=== PATIENT | male | born 1975 | race Caucasian/White ===

== ENCOUNTER 2017-01-03 01:43 | Emergency (ER) | payer SELFPAY ==
[2017-01-03] MEDS ORDERED: ZIPRASIDONE INJ 20 MG/ML VIAL IM ONE ×2 (01:55→02:15)
[2017-01-03] MEDS ORDERED: WATER FOR INJ 10 ML VIAL INJ ONE (02:01)
--- NOTE | 2017-01-03 02:47 | RAD ---
EXAM: Single view chest. INDICATION: Chest pain. COMPARISON: Chest x-ray: None. FINDINGS: Cardiac silhouette: Unremarkable. Lianet: Unremarkable. Lobar consolidation: None. Pleural effusion: None. Pneumothorax: None. Other: None. Bones: Unremarkable. Other: None. IMPRESSION: 1. No acute cardiopulmonary process. Electronically signed by: Saeid Rose MD 01/03/2017 2:46 AM CDT
[2017-01-03] MEDS ORDERED: KCL 40MEQ/NS 1,000 ML IVS PRN (03:28)
[2017-01-03 03:33] VITALS: TEMP 98.5
--- NOTE | 2017-01-03 03:43 | ED.PDOC ---
History of Present Illness - General Source: patient, police, EMS Exam Limitations: clinical condition, intoxication - History of Present Illness Initial Comments: Patient brought in by EMS , escorted by police, after being found naked in a hotel hallway. He was making incoherent statements so he was brought here for evaluation for intoxication. He varies between being combative and being friendly, then sometimes pretending to be asleep. He gives his first name only and says he is from [place]. Otherwise, no other reliable information can be obtained. He states that he smoked "medical marijuana" tonight but denies any other drug use. Timing/Duration: unsure Severity: moderate Improving Factors: nothing Worsening Factors: nothing Associated Symptoms: denies symptoms <Silvino Sutton - Last Filed: 01/03/17 03:40> <Tamar Albright - Last Filed: 01/03/17 07:46> - General Chief Complaint: Behavioral / Psych Stated Complaint: confused and combative Time Seen by Provider: 01/03/17 02:03 - History of Present Illness Allergies/Adverse Reactions: Allergies NO KNOWN ALLERGY Allergy (Verified 01/03/17 02:17) Review of Systems - Review of Systems Unable to Obtain Due To: condition, clinical condition, other - intoxication <Silvino Sutton - Last Filed: 01/03/17 03:40> Past Medical History (General) - Patient Medical History Hx Asthma: No Hx Cardiac Disorders: No Hx Congestive Heart Failure: No Hx Pacemaker: No Hx Hypertension: No Hx Diabetes: No Surgical History: other - Vaccination History Hx Tetanus, Diphtheria Vaccination: - unk Hx Influenza Vaccination: - unk - Social History Hx Tobacco Use: Yes Hx Chewing Tobacco Use: No Hx Alcohol Use: Yes Feels Threatened In Home Enviroment: No Feels Threatened In a Relationship: No Hx Physical Abuse: No Hx Emotional Abuse: No Hx Suspected Abuse: No <Silvino Sutton - Last Filed: 01/03/17 03:40> Family Medical History - Family History Father Family History: Unknown <Silvino Sutton - Last Filed: 01/03/17 03:40> Physical Exam - Physical Exam General Appearance: Agitated, Restless Eye Exam: bilateral normal Ears, Nose, Throat: normal ENT inspection Neck: non-tender, full range of motion, supple Respiratory: lungs clear Cardiovascular/Chest: regular rate, rhythm Gastrointestinal/Abdominal: normal bowel sounds, non tender, soft Extremity: normal range of motion Neurologic: no motor/sensory deficits Skin Exam: normal color Lymphatic: no adenopathy <Silvino Sutotn - Last Filed: 01/03/17 03:40> Progress - Progress Progress: 01/03/17 03:44 Patient continued to be combative and threatening. He was given Geodon 20 mg IM plus Ativan 2 mg IM x one. He calmed down slightly but was still combative. He received Geodon 20 mg IM x one again and then went to sleep. He was put into 4 point restraints and labs were drawn. Potassium was 2.9 so he was started on one liter NS + KCl 40 meq over 4 hours. Urine drug screen was positive only for marijuana and opioids. Laboratory Tests 01/03/17 01/03/17 02:30 02:55 WBC 8.5 RBC 4.59 L Hgb 13.6 L Hct 40.1 L MCV 87.4 MCH 29.6 MCHC 33.9 RDW 13.0 Plt Count 218 MPV 7.7 Absolute Neuts (auto) 4.40 Absolute Lymphs (auto) 3.00 Absolute Monos (auto) 0.80 Absolute Eos (auto) 0.30 Absolute Basos (auto) 0.00 Neutrophils % 52.1 Lymphocytes % 35.2 Monocytes % 8.9 Eosinophils % 3.4 Basophils % 0.4 Sodium 142 Potassium 2.9 L Chloride 109 Carbon Dioxide 24 Anion Gap 11.9 L BUN 14 Creatinine 1.17 BUN/Creatinine Ratio 12.0 Random Glucose 103 Serum Osmolality 283.8 Calcium 8.5 Total Bilirubin 0.7 AST 27 ALT 26 Alkaline Phosphatase 57 Serum Total Protein 6.8 Albumin 3.9 Globulin 2.9 Albumin/Globulin Ratio 1.3 Salicylates < 4.0 Urine Opiates Screen Positive H Acetaminophen < 10.0 L Urine Barbiturates Negative Ur Phencyclidine Scrn Negative U Amphetamin/Meth Scrn Negative U Benzodiazepines Scrn Negative U Cocaine Metab Screen Negative U Cannabinoids Screen Positive H Ethyl Alcohol < 5.40 <Silvino Sutton - Last Filed: 01/03/17 03:40> - Progress Progress: 01/03/17 07:42 IV Potassium is done. Patient is arousable and does not remember what went on last night. He is medically cleared & ok to go to skilled nursing. PD called. He is still in 4 point restraints due to being combative last night. Will await officer arrival prior to removing restraints. <Tamar Albright - Last Filed: 01/03/17 07:46> Departure <Silvino Sutton - Last Filed: 01/03/17 03:40> - Departure Time of Disposition: 07:44 Diet: resume usual diet Activity: increase activity as tolerated <Tamar Albright - Last Filed: 01/03/17 07:46> - Departure Clinical Impression: Drug abuse Altered mental state Qualifiers: Altered mental status type: transient alteration of awareness Qualifier Code: ( R40.4) Transient alteration of awareness Disposition: Assisted Condition: Good Departure Forms: ED Discharge - Pt. Copy, Patient Portal Self Enrollment Instructions: DI for Altered Mental Status, DI for Drug Abuse and Drug Addiction
[2017-01-03 07:42] VITALS: BP 132/78
[2017-01-03 08:39] VITALS: O2SAT 95
== END 2017-01-03 08:38 ==
LOC: ER 01:43
DX: R40.4 Transient alteration of awareness (principal); F19.10 Other psychoactive substance abuse, uncomplicated; Z87.891 Personal history of nicotine dependence
CPT/HCPCS: 71010; 80053; 80301; 80320; 80329; 85025; 93005; A4216; J2060; J3480; J3486